=== PATIENT | male | born 1970 | race Hispanic/Latino ===

== ENCOUNTER 2018-12-29 08:16 | Emergency (ER) | payer SELFPAY ==
[2018-12-29 08:52] LABS: #Basophils 0.1 thou/uL (0.0-0.2); #Eosinphils 0.3 thou/uL (0.0-0.7); #Lymphocytes 2.4 thou/uL (1.20-3.40); #Monocytes 0.5 thou/uL (0.11-0.59); #Neutrophils 5.4 thou/uL (1.40-6.50); %Basophils 0.6 % (0.0-1.0); %Eosinophils 3.9 % (0.0-10.0); %Lymphocytes 27.4 % (21.0-51.0); %Monocytes 6.2 % (0.0-10.0); %Neutrophils 61.9 % (42.0-75.0); Hemoglobin 19.5 g/dL (14.0-18.0); Mean Corpuscular HGB CONC 35.3 g/dL (32.0-36.0); Mean Corpuscular Hemoglobin 31.9 pg (27.0-31.0); Mean Corpuscular Volume 90.3 fL (78.0-98.0); Mean Platelet Volume 9.2 fL (7.4-10.4); Platelet Count 235 thou/uL (130-400); RBC Distribution Width 12.3 % (11.5-14.5); Red Blood Cell (RBC) Count 6.12 mill/uL (4.70-6.10); White Blood Cell (WBC) Count 8.8 thou/uL (4.8-10.8)
[2018-12-29 09:11] LABS: ALT (SGPT) 50 U/L (8-55); AST (SGOT) 38 U/L (5-34); Albumin 4.2 g/dL (3.5-5.0); Alkaline Phosphatase 101 U/L (40-110); Anion Gap 16 mmol/L (10-20); BUN (Urea Nitrogen) 27 mg/dL (8.9-20.6); Bilirubin, Total 0.5 mg/dL (0.2-1.2); Calc. Creatinine Clearance 0 mL/min (70-130); Calcium 9.5 mg/dL (7.8-10.44); Carbon Dioxide 18 mmol/L (22-29); Chloride 105 mmol/L (98-107); Estimated GFR-MDRD 23; Glucose 199 mg/dL (70-105); Potassium 5.8 mmol/L (3.5-5.1); Protein, Total 8.2 g/dL (6.0-8.3); Sodium 133 mmol/L (136-145)
--- NOTE | 2018-12-29 10:46 | RAD ---
SINGLE VIEW CHEST: Date: 12/29/18 COMPARISON: None. HISTORY: Low potassium and weakness. FINDINGS: Single view of the chest shows a normal sized cardiomediastinal silhouette. There is no evidence of c onsolidation, mass, or pleural effusion. The bones are unremarkable. IMPRESSION: No evidence of acute cardiopulmonary disease. POS: TPC
[2018-12-29 11:01] LABS: Anion Gap 13 mmol/L (10-20); BUN (Urea Nitrogen) 27 mg/dL (8.9-20.6); Calc. Creatinine Clearance 0 mL/min (70-130); Calcium 9.4 mg/dL (7.8-10.44); Carbon Dioxide 20 mmol/L (22-29); Chloride 107 mmol/L (98-107); Estimated GFR-MDRD 25; Glucose 134 mg/dL (70-105); Sodium 134 mmol/L (136-145)
== END 2018-12-29 11:55 | disposition home or self-care (01) ==
LOC: ERS 08:16
DX: E86.0 Dehydration (principal); E87.5 Hyperkalemia; E11.9 Type 2 diabetes mellitus without complications; E78.5 Hyperlipidemia, unspecified; Z79.899 Other long term (current) drug therapy
CPT/HCPCS: 36415; 36416; 71045; 80053; 85025; 93005; 94760; 96360

== ENCOUNTER 2019-03-06 11:40 | Inpatient (IN) | payer SELFPAY ==
[2019-03-06 12:14] LABS: #Eosinphils 0.3 thou/uL (0.0-0.7); #Monocytes 0.6 thou/uL (0.11-0.59); #Neutrophils 7.3 thou/uL (1.40-6.50); %Basophils 0.2 % (0.0-1.0); %Eosinophils 2.6 % (0.0-10.0); %Lymphocytes 19.9 % (21.0-51.0); %Monocytes 6.2 % (0.0-10.0); %Neutrophils 71.1 % (42.0-75.0); Hemoglobin 17.4 g/dL (14.0-18.0); Mean Corpuscular HGB CONC 34.1 g/dL (32.0-36.0); Mean Corpuscular Hemoglobin 29.6 pg (27.0-31.0); Mean Corpuscular Volume 86.9 fL (78.0-98.0); Mean Platelet Volume 9.4 fL (7.4-10.4); Platelet Count 237 thou/uL (130-400); RBC Distribution Width 12.2 % (11.5-14.5); Red Blood Cell (RBC) Count 5.89 mill/uL (4.70-6.10); White Blood Cell (WBC) Count 10.3 thou/uL (4.8-10.8)
[2019-03-06 12:36] LABS: ALT (SGPT) 36 U/L (8-55); AST (SGOT) 30 U/L (5-34); Albumin 4.1 g/dL (3.5-5.0); Alkaline Phosphatase 117 U/L (40-110); Anion Gap 17 mmol/L (10-20); BUN (Urea Nitrogen) 48 mg/dL (8.9-20.6); Bilirubin, Total 0.5 mg/dL (0.2-1.2); Calc. Creatinine Clearance 0 mL/min (70-130); Calcium 9.2 mg/dL (7.8-10.44); Carbon Dioxide 24 mmol/L (22-29); Chloride 94 mmol/L (98-107); Estimated GFR-MDRD 19; Globulin 3.7 g/dL (2.4-3.5); Glucose 313 mg/dL (70-105); Lipase 47 U/L (8-78); Magnesium 1.4 mg/dL (1.6-2.6); Protein, Total 7.8 g/dL (6.0-8.3); Sodium 132 mmol/L (136-145)
[2019-03-06 12:41] LABS: Potassium 2.5 mmol/L (3.5-5.1)
[2019-03-06] MEDS ORDERED: Potassium Chloride 20 MEQ TAB ONE (12:43)
[2019-03-06 12:44] LABS: Bacteria/HPF None Seen HPF (None Seen); Bilirubin Negative (Negative); Blood, Urine Trace (Negative); Clarity Clear (Clear); Glucose, Urine (Dipstick) 300 mg/dL (Negative); Leukocyte Negative Leu/uL (Negative); Nitrite Negative (Negative); Protein, Urine (Dipstick) 70 mg/dL (Neg-Trace); RBC/HPF 0-3 HPF (0-3); Squamous Epithelial None Seen HPF (0-3); Urobilinogen Normal mg/dL (Less than 2); WBC/HPF 0-3 HPF (0-3)
[2019-03-06] MEDS ORDERED: Dextrose 50% Abboject 50 ML SYRINGE SLOW IVP PRN (15:27)
[2019-03-06] MEDS ORDERED: Insulin Regular 300 UNITS/3 ML VIAL SC PRN (15:27)
[2019-03-06] MEDS ORDERED: Dextrose 5% in Water 1,000 ML IV PRN (15:27)
[2019-03-06] MEDS ORDERED: Ondansetron ODT 4 MG TAB PO PRN (15:28)
[2019-03-06] MEDS ORDERED: Ondansetron PF 4 MG/2 ML Vial IVP PRN (15:28)
[2019-03-06] MEDS ORDERED: Magnesium 2 GM/50 ML BAG (IN WATER) ONE (15:38)
--- NOTE | 2019-03-06 15:59 | HP ---
PRIMARY CARE PHYSICIAN: Anny Hassan. PRIMARY POINTER HELPER: Dr. Bob. CHIEF COMPLAINT: Generalized weakness with diarrhea. 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 The last hospitalization at this facility was in February of 2017 for electrolyte abnormalities. Over the last 24-48 hours, he started having diarrhea. He had approximately 8 episodes of watery stool so far. He denies any hematochezia or melena. He felt nauseous; however, denies any vomiting. He had generalized abdominal cramping as well. No jaundice, loss of weight, fever, chills reported. He felt generally weak and fatigued. He denies any syncope. He denies any fever or chills. In the emergency room, his initial vital signs showed temperature 98.8, respirations of 19, pulse rate of 112 with a blood pressure of 134/82 with O2 saturation 97% on room air. He was found to have potassium of 2.5 with creatinine of 3.45. His baseline creatinine is around 2.5-2.6. He received oral potassium in the emergency room. PAST MEDICAL HISTORY: 1. 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 2. Diabetes mellitus type 2. 3. CKD stage 4. 4. Dyslipidemia. PAST SURGICAL HISTORY: Reviewed with the patient and none. ALLERGIES: THE PATIENT IS ALLERGIC TO FABIO INHIBITOR. CURRENT HOME MEDICATIONS: The patient is unable to provide the list of medicine what he takes at home. SOCIAL HISTORY: The patient currently lives at home with his family. No current use of tobacco, alcohol, or drug use. FAMILY HISTORY: Negative for premature coronary artery disease. REVIEW OF SYSTEMS: All other review of systems were reviewed and were found negative. PHYSICAL EXAMINATION: VITAL SIGNS: As discussed above. GENERAL: A 49-year-old male, in no apparent distress, feels better with IV fluids. HEENT: Head atraumatic and normocephalic. Sclerae anicteric. Dry mucous membranes. No oral lesion. NECK: Supple. No JVD. No carotid bruits. LUNGS: Clear to auscultation bilaterally. No wheezing, rales, or rhonchi. HEART: S1 and S2 present. Regular rate and rhythm. No rubs or gallops. ABDOMEN: Soft, nontender. Bowel sounds present. No rebound or guarding. EXTREMITIES: No edema or calf tenderness. NEUROLOGIC: Grossly nonfocal. Moves all 4 extremities. PSYCHIATRY: Alert, awake, oriented x3. SKIN: Warm and dry. LYMPH NODE: No palpable lymph nodes in the neck. PERIPHERAL VASCULAR: Radial pulses palpable bilaterally. MUSCULOSKELETAL: No joint swelling tenderness. LABORATORY FINDINGS: CBC showed WBC 10.3 with hemoglobin 17.4, hematocrit 51.2, platelet count of 237. Chemistry showed sodium 132, potassium 2.5, chloride 94, bicarb 24, BUN of 48, creatinine 3.45. Magnesium 1.4. Urinalysis was negative for wbc's, bacteria, it showed proteinuria. IMAGING STUDIES: EKG by my review showed sinus rhythm with nonspecific ST-T wave changes. Corrected QT interval was 444. Chest x-ray by my review was negative for infiltrate or edema. IMPRESSION: 1. Generalized weakness, multifactorial. 2. Szfvs-zw-nvfqnis hypokalemia. 3. Diarrhea, suspected infectious. 4. Diabetes mellitus type 2. 5. Hypomagnesemia. 6. Acute kidney injury on chronic kidney disease stage 4. 7. Dyslipidemia. 8. Hyponatremia. 9. FABIO inhibitor allergy. PLAN: 1. The patient will be monitored on the telemetry unit. Nephrology will be consulted. We will get stool workup. We will start him on IV fluids with potassium. We will start him on clear liquid diet. Insulin sliding scale. Vital signs per routine. Recheck labs in a.m. Nephrology consultation. 2. Plan of care was discussed with the patient in detail, he stated understanding. Job ID: [id number]
[2019-03-06] MEDS ORDERED: Potassium Chloride 20 MEQ TAB PO SCH ×2 (17:00→22:00)
[2019-03-06 17:30] VITALS: BMI 39.5
[2019-03-06] MEDS: NS 0.9% w/ 20 MEQ KCL 1,000 ML/1,000 ML BAG IV SCH (18:12)
[2019-03-06] MEDS: Insulin Regular 300 UNITS/3 ML VIAL SC PRN (18:36)
[2019-03-06] MEDS: Famotidine 20 MG TAB PO SCH (21:36)
[2019-03-06 21:44] LABS: Potassium 2.7 mmol/L (3.5-5.1)
[2019-03-07 04:42] LABS: #Basophils 0.1 thou/uL (0.0-0.2); #Eosinphils 0.5 thou/uL (0.0-0.7); #Lymphocytes 2.7 thou/uL (1.20-3.40); #Monocytes 0.7 thou/uL (0.11-0.59); %Basophils 0.7 % (0.0-1.0); %Eosinophils 5.1 % (0.0-10.0); %Lymphocytes 26.9 % (21.0-51.0); %Monocytes 6.9 % (0.0-10.0); %Neutrophils 60.5 % (42.0-75.0); Hemoglobin 15.7 g/dL (14.0-18.0); Mean Corpuscular HGB CONC 33.5 g/dL (32.0-36.0); Mean Corpuscular Hemoglobin 29.7 pg (27.0-31.0); Mean Corpuscular Volume 88.6 fL (78.0-98.0); Mean Platelet Volume 9.2 fL (7.4-10.4); Platelet Count 206 thou/uL (130-400); RBC Distribution Width 12.3 % (11.5-14.5); Red Blood Cell (RBC) Count 5.28 mill/uL (4.70-6.10)
[2019-03-07 05:08] LABS: Albumin 3.5 g/dL (3.5-5.0); Anion Gap 12 mmol/L (10-20); BUN (Urea Nitrogen) 43 mg/dL (8.9-20.6); BUN/Creatinine Ratio 12.84; Calc. Creatinine Clearance 41 mL/min (70-130); Calcium 8.3 mg/dL (7.8-10.44); Carbon Dioxide 29 mmol/L (22-29); Chloride 99 mmol/L (98-107); Estimated GFR-MDRD 20; Glucose 222 mg/dL (70-105); Phosphorus 2.9 mg/dL (2.3-4.7); Sodium 137 mmol/L (136-145)
[2019-03-07 05:10] LABS: Potassium 2.6 mmol/L (3.5-5.1)
[2019-03-07] MEDS: NS 0.9% w/ 20 MEQ KCL 1,000 ML/1,000 ML BAG IV SCH ×4 (05:59→20:23)
[2019-03-07] MEDS ORDERED: Potassium Chloride 20 MEQ TAB PO SCH ×2 (06:45→12:00)
[2019-03-07] MEDS: Insulin Regular 300 UNITS/3 ML VIAL SC PRN ×3 (07:25→16:30)
[2019-03-07] MEDS ORDERED: FLU VACC QS2019-20(6MOS UP)/PF 60 MCG/0.5 ML SYRINGE IM ONE (09:00)
[2019-03-07] MEDS: Potassium Chloride 20 MEQ TAB PO SCH ×3 (11:39→20:24)
--- NOTE | 2019-03-07 15:50 | CON ---
DATE OF CONSULTATION: HISTORY OF PRESENT ILLNESS: Mr. 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 He was found to be significantly hypokalemic. We are now being consulted for chronic renal failure and hypokalemia. This morning, he is feeling better. He has received volume repletion and his hypokalemia is being corrected at the present time. REVIEW OF SYSTEMS: Positive for diarrhea. No nausea. No vomiting. Appetite and energy level are fair. No chest pain or shortness of breath. No syncopal episode. No leg edema. No fever or chills. No gross hematuria. No dysuria. No frequency. No abdominal pain. HOME MEDICATIONS: Include the following, 1. Spironolactone 25 mg q.a.m. 2. KCl (K-Dur) 20 mEq t.i.d. 3. Magnesium oxide 400 mg p.o. b.i.d. 4. NPH 10 units subcu b.i.d. PAST MEDICAL HISTORY: Includes; 1. History of chronic renal failure secondary to a presumed chronic interstitial nephritis. This patient has declined a renal biopsy in the past. 2. 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 3. Type 2 diabetes mellitus. PAST SURGICAL HISTORY: No significant surgeries. ALLERGIES: LISINOPRIL-ANGIOEDEMA. TRAUMA: None. IMMUNIZATIONS: Up to date. HOSPITALIZATIONS: Please see past medical history. SOCIAL HISTORY: The patient originally from [place], but currently lives in [place]. Has one child. No IV drug abuse. Education, high school. Currently works on a p.r.n. basis as daily labor. Currently, no smoking. No alcohol. FAMILY HISTORY: One brother with chronic renal failure. PHYSICAL EXAMINATION: VITAL SIGNS: Blood pressure is 112/65, heart rate 73, respiratory rate 23, temperature 97, and pulse ox 99% on room air. GENERAL: Awake, alert, comfortable, well-built individual. SKIN: Adequate turgor. HEENT: Pinkish conjunctivae. Anicteric sclerae. NECK: No neck mass. No carotid bruits. No JVD. CHEST: No deformities. LUNGS: Clear breath sounds. No wheezing. No crackles. HEART: Normal sinus rhythm. No murmur. No gallops. No rubs. ABDOMEN: Globular, soft, nontender. No masses. EXTREMITIES: No edema. No deformities. LABORATORY DATA: Laboratories of March 07, 2019; white count 10, hemoglobin 15.7. Sodium 137, potassium 2.6, chloride 99, carbon dioxide 29, BUN 43, creatinine 3.35, glucose 222, calcium 8.3, phosphorus 2.9, albumin 3.5. ASSESSMENT/PLAN: 1. Chronic renal failure from presumed chronic interstitial nephritis. Stable renal function. The patient has refused renal biopsy in the past. Continue supportive care. No indication for any dialysis. 2. Hypokalemia. Due to diarrhea, it may have aggravated his chronic hypokalemia. Increase potassium to 40 mEq one tablet q.i.d. We will restart magnesium oxide at 400 mg tablet b.i.d. In addition, spironolactone 25 mg tablet once a day was restarted. Agree with current management. Job ID: [id number]
[2019-03-07] MEDS: Magnesium Oxide 400 MG TAB PO SCH (20:24)
[2019-03-07] MEDS: Famotidine 20 MG TAB PO SCH (20:24)
[2019-03-07] MEDS ORDERED: Famotidine/PF 20 mg/2ml Vial SLOW IVP SCH (21:00)
--- NOTE | 2019-03-07 22:21 | PDOC.HOSPP ---
- Subjective Encounter Date: 03/07/19 Encounter Time: 10:30 Subjective: Patient seen and examined for gen weakness, Diarrhea resolved. Feels somewhat better. No CP. No new complaints. No overnight events - Objective Vital Signs & Weight: Vital Signs (12 hours) Temp Pulse Resp BP Pulse Ox 03/07/19 20:00 97.7 F 80 16 114/58 L 97 03/07/19 15:35 98 F 73 16 109/64 97 03/07/19 11:49 97.6 F 82 18 120/64 96 Weight Admit Weight 237 lb 9.6 oz Weight 237 lb 9.6 oz I&O: 03/06/19 03/07/19 03/08/19 06:59 06:59 06:59 Intake Total 2180 2220 Output Total 1900 2175 Balance 280 45 Result Diagrams: 03/07/19 04:26 03/08/19 04:09 Additional Labs: Accuchecks 03/07/19 03/07/19 03/07/19 20:21 16:08 12:48 POC Glucose 128 H 280 H 133 H 03/07/19 03/07/19 03/07/19 10:26 05:42 01:37 POC Glucose 189 H 265 H 112 H 03/06/19 21:52 POC Glucose 148 H EKG Reviewed by me: Yes (Tele SR) Hospitalist ROS - Review of Systems Respiratory: denies: cough, dry, shortness of breath, hemoptysis, SOB with excertion, pleuritic pain, sputum, wheezing, other Cardiovascular: denies: chest pain, palpitations, orthopnea, paroxysmal noc. dyspnea, edema, light headedness, other - Medication Medications: Active Medications Generic Name Dose Route Start Last Admin Trade Name Freq PRN Reason Stop Dose Admin Famotidine 20 mg 03/07/19 21:00 03/07/19 20:24 Pepcid SLOW IVP Not Given 2100 ORION Famotidine 20 mg 03/06/19 21:00 03/07/19 20:24 Pepcid PO 20 mg 2100 ORION Administration Potassium Chloride/Sodium Chloride 1,000 ml in 1,000 mls @ 125 mls/hr 15:30 03/07/19 20:23 Ns 0.9% W/ 20 Meq Kcl IV 1,000 mls .Q8H ORION Administration Insulin Human Regular 0 units 03/06/19 15:27 03/07/19 16:30 Humulin R SC 4 unit .MILD SLIDING SCALE PRN Administration Mild Correctional Scale Magnesium Oxide 400 mg 03/07/19 21:00 03/07/19 20:24 Magnesium Oxide PO 400 mg BID ORION Administration Potassium Chloride 40 meq 03/07/19 12:00 03/07/19 20:24 K-Dur PO 40 meq QID-WM ORION Administration - Exam General Appearance: NAD Heart: RRR, no gallops, no rubs, normal peripheral pulses Respiratory: CTAB, no rales, no ronchi, normal chest expansion Gastrointestinal: soft, non-tender, non-distended, normal bowel sounds Extremities: no edema Psychiatric: normal affect, A&O x 3 Hosp A/P - Plan DVT proph w/SCDs 1. Generalized weakness, multifactorial. 2. Dfnti-vp-xmpkldk hypokalemia. 3. Acute kidney injury on chronic kidney disease stage 4. 4. Diabetes mellitus type 2. 5. Hypomagnesemia. 6. Hyponatremia. 7. Dyslipidemia. 8. Diarrhea - on admission - resolved - ?etio PLAN: Cont to replace Potassium Low dose Aldactone started DC Stool w/u AM labs Cont other meds Avoid nephrotoxic agents
[2019-03-08] MEDS: NS 0.9% w/ 20 MEQ KCL 1,000 ML/1,000 ML BAG IV SCH ×4 (04:50→21:47)
[2019-03-08 05:14] LABS: Anion Gap 12 mmol/L (10-20); BUN (Urea Nitrogen) 42 mg/dL (8.9-20.6); Calc. Creatinine Clearance 43 mL/min (70-130); Calcium 8.3 mg/dL (7.8-10.44); Carbon Dioxide 30 mmol/L (22-29); Chloride 102 mmol/L (98-107); Estimated GFR-MDRD 21; Glucose 156 mg/dL (70-105); Magnesium 1.3 mg/dL (1.6-2.6); Sodium 141 mmol/L (136-145)
[2019-03-08] MEDS: Potassium Chloride 20 MEQ TAB PO SCH ×4 (07:29→20:37)
[2019-03-08] MEDS: Spironolactone 25 MG TAB PO SCH (07:30)
[2019-03-08] MEDS ORDERED: Magnesium Sulfate 2 GM in Sodium Chloride 0.9% 100 ML IVPB SCH (08:00)
[2019-03-08] MEDS ORDERED: Magnesium 2 GM/50 ML 2 GM in Premix Bag 1 BAG IVPB SCH (08:15)
--- NOTE | 2019-03-08 08:49 | PRG ---
DATE OF SERVICE: 03/08/2019 SUBJECTIVE: Mr. Upton is a 49-year-old male with chronic renal failure from presumed chronic interstitial nephritis, chronic hypokalemia, secondary to presumed Bartter syndrome and was admitted for generalized weakness. Potassium was noted to be on the low side. Potassium replacement is being given. In addition, we have restarted him back on his magnesium tablets. Furthermore, spironolactone was restarted with this patient. No other complaints. He is feeling a little stronger. OBJECTIVE: VITAL SIGNS: Blood pressure 108/54, heart rate 77, respiratory rate 16, temperature 98.1, and pulse ox 97%. GENERAL: Awake, sitting comfortable, not in overt distress. SKIN: Adequate turgor. HEENT: Pinkish conjunctivae, anicteric sclerae. NECK: No neck mass. No carotid bruits. No JVD. CHEST: No deformities. LUNGS: Clear breath sounds. HEART: Normal sinus rhythm. No murmur. No gallops. No rubs. ABDOMEN: Globular, soft, nontender, no masses. EXTREMITIES: No edema, no deformities. MEDICATIONS: Medications of March 08, 2019, was reviewed. LABORATORY DATA: March 08, 2019, sodium 141, potassium 3, chloride 102, carbon dioxide 30, BUN 42, creatinine 3.2, glucose 156, calcium 8.3, magnesium 1.3. ASSESSMENT AND PLAN: 1. Chronic renal failure from a presumed chronic interstitial nephritis. Stable renal function. Creatinine 3.2. He is nearing baseline. Continue supportive care. Continue empiric volume repletion. Adjust IV fluid as needed. 2. Chronic hypokalemia, improving. Continue potassium replacement of 40 mEq one tab 4 times a day. Magnesium has been added. Furthermore, spironolactone has been resumed. 3. We will recheck basic metabolic profile in a.m. Consider increasing his IV fluid to 150 mL an hour. 4. Recheck basic metabolic profile in a.m. Job ID: [id number]
[2019-03-08] MEDS: Magnesium Oxide 400 MG TAB PO SCH ×2 (09:27→20:37)
[2019-03-08] MEDS: Insulin Regular 300 UNITS/3 ML VIAL SC PRN ×2 (09:32→11:32)
--- NOTE | 2019-03-08 11:31 | PDOC.HOSPP ---
- Subjective Encounter Date: 03/08/19 Encounter Time: 11:29 Subjective: Patient seen and examined for Gen weakness. Feels better. No new complaints. No overnight events - Objective Vital Signs & Weight: Vital Signs (12 hours) Temp Pulse Resp BP Pulse Ox 03/08/19 07:21 98.1 F 77 16 108/54 L 97 03/08/19 03:50 97.9 F 75 20 102/61 94 L 03/08/19 00:00 98.1 F 79 20 98/63 95 Weight Admit Weight 237 lb 9.6 oz Weight 237 lb 9.6 oz I&O: 03/07/19 03/08/19 03/09/19 06:59 06:59 06:59 Intake Total 2180 4080 Output Total 1900 3375 Balance 280 705 Result Diagrams: 03/07/19 04:26 03/08/19 04:09 Additional Labs: Accuchecks 03/08/19 03/08/19 03/08/19 10:52 08:27 04:18 POC Glucose 224 H 216 H 147 H 03/08/19 03/07/19 03/07/19 00:19 20:21 16:08 POC Glucose 170 H 128 H 280 H 03/07/19 12:48 POC Glucose 133 H Laboratory Tests 03/08/19 04:09 Magnesium 1.3 L EKG Reviewed by me: Yes (Tele SR) Hospitalist ROS - Review of Systems ENT: denies: ear pain, ear discharge, nose pain, nose discharge, nose congestion , mouth pain, mouth swelling, throat pain, throat swelling, other Respiratory: denies: cough, dry, shortness of breath, hemoptysis, SOB with excertion, pleuritic pain, sputum, wheezing, other Cardiovascular: denies: chest pain, palpitations, orthopnea, paroxysmal noc. dyspnea, edema, light headedness, other - Medication Medications: Active Medications Generic Name Dose Route Start Last Admin Trade Name Freq PRN Reason Stop Dose Admin Famotidine 20 mg 03/06/19 21:00 03/07/19 20:24 Pepcid PO 20 mg 2100 ORION Administration Potassium Chloride/Sodium Chloride 1,000 ml in 1,000 mls @ 150 mls/hr 08:33 03/08/19 09:27 Ns 0.9% W/ 20 Meq Kcl IV Not Given .[id number] [facility] Insulin Human Regular 0 units 03/06/19 15:27 03/08/19 09:32 Humulin R SC 3 unit .MILD SLIDING SCALE PRN Administration Mild Correctional Scale Magnesium Oxide 400 mg 03/07/19 21:00 03/08/19 09:27 Magnesium Oxide PO 400 mg BID ORION Administration Potassium Chloride 40 meq 03/07/19 12:00 03/08/19 07:29 K-Dur PO 40 meq QID-WM ORION Administration Spironolactone 25 mg 03/08/19 08:00 03/08/19 07:30 Aldactone PO 25 mg QAM-WM ORION Administration - Exam General Appearance: NAD Neck: supple, no JVD Heart: RRR, no rubs Respiratory: CTAB, no rales Gastrointestinal: soft, normal bowel sounds Extremities: no edema Hosp A/P - Plan DVT proph w/SCDs 1. Generalized weakness, multifactorial. 2. Bxnan-ek-vzsverx hypokalemia. 3. Acute kidney injury on chronic kidney disease stage 4. 4. Diabetes mellitus type 2. 5. Hypomagnesemia. 6. Hyponatremia. 7. Dyslipidemia. 8. Diarrhea - on admission - resolved - ?etio PLAN: Replace Potassium Cont Aldactone Cont IVF Replace Magnessium AM labs Cont other meds Ambulate
[2019-03-08 16:14] VITALS: TEMP 98.3
[2019-03-08] MEDS: Famotidine 20 MG TAB PO SCH (20:38)
[2019-03-09] MEDS: NS 0.9% w/ 20 MEQ KCL 1,000 ML/1,000 ML BAG IV SCH ×3 (05:10→13:53)
[2019-03-09] MEDS: Magnesium Oxide 400 MG TAB PO SCH ×2 (09:56→12:37)
[2019-03-09] MEDS: Potassium Chloride 20 MEQ TAB PO SCH ×3 (09:56→12:36)
[2019-03-09] MEDS: Insulin Regular 300 UNITS/3 ML VIAL SC PRN ×2 (09:56→13:09)
[2019-03-09] MEDS: Spironolactone 25 MG TAB PO SCH ×2 (09:56→12:37)
--- NOTE | 2019-03-09 13:01 | PRG ---
DATE OF SERVICE: 03/09/2019 SUBJECTIVE: Mr. Upton is a 49-year-old male with known history of chronic renal failure from presumed chronic interstitial nephritis, chronic hypokalemia from Bartter syndrome. We are continuing to replenish IV hydration. In addition, we have increased his IV fluid from 125 mL/hour to 150 mL/h. No other complaints. No chest pain. No nausea. No shortness of breath. OBJECTIVE: VITAL SIGNS: Blood pressure is 111/66, heart rate 81, respiratory rate 18, temperature 98.3, and pulse ox 96%. GENERAL: Noted to be awake, alert, and comfortable, not in overt distress. SKIN: Adequate turgor. HEENT: He has a pinkish conjunctivae. Anicteric sclerae. No neck mass. No carotid bruits. No JVD. CHEST: No deformities. LUNGS: Clear breath sounds. No wheezing. No crackles. HEART: Normal sinus rhythm. No murmur. No gallops. No rubs. ABDOMEN: Globular, soft, and nontender. No masses. EXTREMITIES: No edema. MEDICATIONS: Of March 09, 2019, was reviewed. LABORATORY DATA: Of March 08, 2019; sodium 141, potassium 3, chloride 102, carbon dioxide 30, BUN 42, creatinine 3.2, and magnesium 1.3. ASSESSMENT AND PLAN: 1. Hypokalemia. Continuing potassium replacement. Continue 40 mEq q.i.d. Continue mag oxide as well as IV fluid. 2. Chronic renal failure, stable and improving. Continue IV hydration. Continue increased dose of IV fluid. If the potassium will be 3 or greater today, consider discharging the patient and will follow up this patient as an outpatient. Job ID: [id number]
--- NOTE | 2019-03-09 14:33 | DIS ---
DATE OF ADMISSION: 03/06/2019 DATE OF DISCHARGE: 03/09/2019 DISCHARGE DISPOSITION: Home. DISCHARGE INSTRUCTIONS: 1. Follow up with Dr. Bob next week. 2. Repeat basic metabolic profile next week is recommended. The patient was advised to contact Dr. Bob's office. DISCHARGE MEDICATION: 1. Magnesium oxide 400 mg b.i.d. 2. Potassium chloride 40 mEq four times a day. 3. Aldactone 25 mg daily. 4. NPH 10 units b.i.d. The patient was seen and examined on the day of discharge. Denies any new complaints. No chest pain, shortness of breath or palpitations. BRIEF HOSPITAL COURSE: The patient is a 49-year-old male with chronic hypokalemia, suspected secondary to Bartter syndrome and diabetes mellitus type 2, presented to the hospital with generalized weakness along with diarrhea. After admission, he did not have a bowel movement for almost two days. He was found to have significant electrolyte abnormalities with potassium of 2.5, magnesium 1.4, and sodium of 132. His electrolytes were replaced. His potassium today was 3.1. Dr. Bob has cleared the patient for discharge. He was advised to take potassium 40 mEq four times a day along with Aldactone and magnesium oxide. He will follow up with Dr. Bob next week. FINAL DIAGNOSES: 1. Generalized weakness, multifactorial. 2. Acute on chronic hypokalemia, replaced. 3. Acute kidney injury on chronic kidney disease stage 4. His creatinine on admission was 3.45, at discharge is 3.2. 4. Diabetes mellitus type 2. 5. Hyponatremia. 6. Hypomagnesemia. 7. Dyslipidemia. 8. Diarrhea on admission, resolved. 9. Obesity with a BMI of 39.5. PLAN: Plan was discussed with the patient in detail. He stated understanding. Job ID: [id number]
[2019-03-09 15:13] LABS: Anion Gap 14 mmol/L (10-20); BUN (Urea Nitrogen) 36 mg/dL (8.9-20.6); Calc. Creatinine Clearance 47 mL/min (70-130); Calcium 8.1 mg/dL (7.8-10.44); Carbon Dioxide 27 mmol/L (22-29); Chloride 103 mmol/L (98-107); Estimated GFR-MDRD 23; Glucose 134 mg/dL (70-105); Magnesium 1.4 mg/dL (1.6-2.6); Potassium 3.1 mmol/L (3.5-5.1); Sodium 141 mmol/L (136-145)
[2019-03-09 16:07] VITALS: BP 131/73
== END 2019-03-09 16:00 | disposition home or self-care (01) | DRG 683 ==
LOC: ERS 11:40 → 2NO 16:26
PROVIDERS: ADMIT Internal Medicine; ATTEND Internal Medicine
DX: N17.9 Acute kidney failure, unspecified (principal); E87.1 Hypo-osmolality and hyponatremia; E26.81 Bartter's syndrome; N18.4 Chronic kidney disease, stage 4 (severe); N11.9 Chronic tubulo-interstitial nephritis, unspecified; E11.22 Type 2 diabetes mellitus with diabetic chronic kidney disease; E78.5 Hyperlipidemia, unspecified; E83.42 Hypomagnesemia; E87.6 Hypokalemia; R19.7 Diarrhea, unspecified; E66.9 Obesity, unspecified; Z68.39 Body mass index [BMI] 39.0-39.9, adult; Z88.8 Allergy status to other drugs, medicaments and biological substances; Z79.4 Long term (current) use of insulin; Z79.899 Other long term (current) drug therapy
CPT/HCPCS: 36415; 36416; 80048; 80053; 80069; 81003; 81015; 83690; 83735; 85025; 90471; 90686; 93005; 96361; 96365; G0008; J1815; J3475; J3480

== ENCOUNTER 2019-04-21 23:21 | Emergency (ER) | payer SELFPAY ==
[2019-04-21 23:55] LABS: #Basophils 0.1 thou/uL (0.0-0.2); #Eosinphils 0.4 thou/uL (0.0-0.7); #Lymphocytes 2.5 thou/uL (1.20-3.40); #Monocytes 0.6 thou/uL (0.11-0.59); #Neutrophils 5.5 thou/uL (1.40-6.50); %Basophils 0.8 % (0.0-1.0); %Eosinophils 4.4 % (0.0-10.0); %Monocytes 6.5 % (0.0-10.0); %Neutrophils 60.4 % (42.0-75.0); Hemoglobin 17.4 g/dL (14.0-18.0); Mean Corpuscular HGB CONC 34.5 g/dL (32.0-36.0); Mean Corpuscular Hemoglobin 30.5 pg (27.0-31.0); Mean Corpuscular Volume 88.3 fL (78.0-98.0); Mean Platelet Volume 9.7 fL (7.4-10.4); Platelet Count 235 thou/uL (130-400); Red Blood Cell (RBC) Count 5.71 mill/uL (4.70-6.10); White Blood Cell (WBC) Count 9.1 thou/uL (4.8-10.8)
[2019-04-22 00:17] LABS: ALT (SGPT) 39 U/L (8-55); AST (SGOT) 31 U/L (5-34); Albumin 4.3 g/dL (3.5-5.0); Alkaline Phosphatase 102 U/L (40-110); Anion Gap 16 mmol/L (10-20); BUN (Urea Nitrogen) 34 mg/dL (8.9-20.6); Bilirubin, Total 0.7 mg/dL (0.2-1.2); Calc. Creatinine Clearance 0 mL/min (70-130); Calcium 9.2 mg/dL (7.8-10.44); Carbon Dioxide 24 mmol/L (22-29); Chloride 99 mmol/L (98-107); Estimated GFR-MDRD 20; Globulin 3.7 g/dL (2.4-3.5); Glucose 118 mg/dL (70-105); Magnesium 1.6 mg/dL (1.6-2.6); Potassium 3.6 mmol/L (3.5-5.1); Sodium 135 mmol/L (136-145)
[2019-04-22 00:22] LABS: Troponin I 0.015 ng/mL (< 0.028)
--- NOTE | 2019-04-22 08:18 | RAD ---
PORTABLE UPRIGHT FRONTAL CHEST RADIOGRAPH: DATE: 04/22/2019. COMPARISON: None. HISTORY: Dizziness with chest pressure and headache. FINDINGS: No pneumothorax or pleural fluid. No focal consolidation or alveolar edema. Heart and mediastinal c ontours are unremarkable. IMPRESSION: No acute findings. POS: TPC
== END 2019-04-22 00:50 | disposition home or self-care (01) ==
LOC: ERS 23:21
DX: N18.9 Chronic kidney disease, unspecified (principal); R42 Dizziness and giddiness; E11.22 Type 2 diabetes mellitus with diabetic chronic kidney disease; E87.6 Hypokalemia; Z79.4 Long term (current) use of insulin; Z79.899 Other long term (current) drug therapy
CPT/HCPCS: 71045; 80053; 83735; 84484; 85025; 87804; 93005

== ENCOUNTER 2019-09-26 09:24 | Emergency (ER) | payer SELFPAY ==
[2019-09-26 09:45] LABS: #Eosinphils 0.3 thou/uL (0.0-0.7); #Monocytes 0.4 thou/uL (0.11-0.59); #Neutrophils 4.8 thou/uL (1.40-6.50); %Basophils 0.2 % (0.0-1.0); %Eosinophils 4.5 % (0.0-10.0); %Lymphocytes 25.9 % (21.0-51.0); %Monocytes 5.6 % (0.0-10.0); %Neutrophils 63.8 % (42.0-75.0); Hemoglobin 16.7 g/dL (14.0-18.0); Mean Corpuscular HGB CONC 34.6 g/dL (32.0-36.0); Mean Corpuscular Hemoglobin 31.3 pg (27.0-31.0); Mean Corpuscular Volume 90.6 fL (78.0-98.0); Mean Platelet Volume 8.7 fL (7.4-10.4); Platelet Count 224 thou/uL (130-400); RBC Distribution Width 12.1 % (11.5-14.5); Red Blood Cell (RBC) Count 5.32 mill/uL (4.70-6.10); White Blood Cell (WBC) Count 7.6 thou/uL (4.8-10.8)
[2019-09-26 10:01] LABS: ALT (SGPT) 34 U/L (8-55); AST (SGOT) 27 U/L (5-34); Alkaline Phosphatase 99 U/L (40-110); Anion Gap 17 mmol/L (10-20); BUN (Urea Nitrogen) 37 mg/dL (8.9-20.6); Bilirubin, Total 0.3 mg/dL (0.2-1.2); Calc. Creatinine Clearance 0 mL/min (70-130); Calcium 8.2 mg/dL (7.8-10.44); Carbon Dioxide 25 mmol/L (22-29); Chloride 98 mmol/L (98-107); Estimated GFR-MDRD 17; Globulin 3.6 g/dL (2.4-3.5); Glucose 186 mg/dL (70-105); Potassium 3.7 mmol/L (3.5-5.1); Protein, Total 7.6 g/dL (6.0-8.3); Sodium 136 mmol/L (136-145)
[2019-09-26 10:29] LABS: Magnesium 1.3 mg/dL (1.6-2.6); Phosphorus 2.5 mg/dL (2.3-4.7)
--- NOTE | 2019-09-26 11:12 | RAD ---
PA CHEST: HISTORY: Low potassium, elevated blood sugar, headache. COMPARISON: 04/22/2019. FINDINGS: Lungs are clear. No infiltrate or vascular congestion. Heart and mediastinum appear normal. IMPRESSION: No acute process. POS: AGW
--- NOTE | 2019-09-26 11:48 | CT ---
Exam: Head CT without contrast HISTORY: Headache, x3 days. COMPARISON: 09/12/2015 FINDINGS: Hemorrhage: No intraparenchymal hemorrhage or extra-axial hematoma. Brain parenchyma: Cortical lux-white matter differentiation is preserved. No mass effect or midline shift. Basilar cisterns are patent. Ventricular system: Ventricles and sulci are patent and symmetric. Calvarium: Intact. Sinuses and mastoid air cells: Adequate aeration. IMPRESSION: No acute intracranial process.
[2019-09-26] MEDS ORDERED: Metoclopramide HCl 10 MG/2 ML VIAL ONE (11:49)
[2019-09-26] MEDS ORDERED: diphenhydrAMINE 50 MG/ML VIAL ONE (11:49)
[2019-09-26 12:23] LABS: Bacteria/HPF None Seen HPF (None Seen); Bilirubin Negative (Negative); Blood, Urine Trace (Negative); Clarity Clear (Clear); Glucose, Urine (Dipstick) Normal (Negative); Leukocyte Negative Leu/uL (Negative); Nitrite Negative (Negative); Protein, Urine (Dipstick) 70 mg/dL (Neg-Trace); RBC/HPF None Seen HPF (0-3); Squamous Epithelial None Seen HPF (0-3); Urobilinogen Normal mg/dL (Less than 2); WBC/HPF 0-3 HPF (0-3)
== END 2019-09-26 13:12 | disposition home or self-care (01) ==
LOC: ERS 09:24
DX: R51 Headache (principal); E11.9 Type 2 diabetes mellitus without complications; Z79.4 Long term (current) use of insulin; Z79.899 Other long term (current) drug therapy
CPT/HCPCS: 36415; 36416; 70450; 71045; 80053; 81003; 81015; 82010; 83735; 84100; 84484; 85025; 93005; 96365; 96375; J1200; J2765

== ENCOUNTER 2020-04-01 06:47 | Emergency (ER) | payer SELFPAY ==
[2020-04-01] MEDS ORDERED: Ondansetron PF 4 MG/2 ML Vial ONE (07:27)
[2020-04-01 07:38] LABS: #Eosinphils 0.3 thou/uL (0.0-0.7); #Lymphocytes 1.9 thou/uL (1.20-3.40); #Monocytes 0.5 thou/uL (0.11-0.59); %Basophils 0.2 % (0.0-1.0); %Eosinophils 3.3 % (0.0-10.0); %Lymphocytes 21.8 % (21.0-51.0); %Monocytes 5.7 % (0.0-10.0); %Neutrophils 68.9 % (42.0-75.0); Mean Corpuscular HGB CONC 34.1 g/dL (32.0-36.0); Mean Corpuscular Volume 91.1 fL (78.0-98.0); Mean Platelet Volume 8.6 fL (7.4-10.4); Platelet Count 231 thou/uL (130-400); RBC Distribution Width 12.4 % (11.5-14.5); Red Blood Cell (RBC) Count 5.47 mill/uL (4.70-6.10); White Blood Cell (WBC) Count 8.7 thou/uL (4.8-10.8)
[2020-04-01 08:02] LABS: ALT (SGPT) 21 U/L (8-55); AST (SGOT) 16 U/L (5-34); Alkaline Phosphatase 85 U/L (40-110); Anion Gap 17 mmol/L (10-20); BUN (Urea Nitrogen) 41 mg/dL (8.9-20.6); Bilirubin, Total 0.4 mg/dL (0.2-1.2); Calc. Creatinine Clearance 0 mL/min (70-130); Calcium 8.8 mg/dL (7.8-10.44); Carbon Dioxide 24 mmol/L (22-29); Chloride 98 mmol/L (98-107); Globulin 3.8 g/dL (2.4-3.5); Glucose 156 mg/dL (70-105); Lipase 53 U/L (8-78); Magnesium 1.5 mg/dL (1.6-2.6); Potassium 4.1 mmol/L (3.5-5.1); Protein, Total 7.8 g/dL (6.0-8.3); Sodium 135 mmol/L (136-145)
[2020-04-01 12:46] LABS: SARS-CoV-2 MS2 Positive; SARS-CoV-2 N Gene Negative; SARS-CoV-2 S Gene Negative; SARS-CoV-2 by NAA Not Detected (NotDetected); SARS-CoV-2 orf1ab Negative
== END 2020-04-01 09:05 | disposition home or self-care (01) ==
LOC: ERS 06:47
DX: R11.0 Nausea (principal); M62.81 Muscle weakness (generalized); Z20.828 Contact with and (suspected) exposure to other viral communicable diseases; Z79.899 Other long term (current) drug therapy; Z79.4 Long term (current) use of insulin
CPT/HCPCS: 36415; 80053; 83690; 83735; 84484; 85025; 87635; 93005; 96374; J2405; U0003

== ENCOUNTER 2020-06-13 05:39 | Inpatient (IN) | payer SELFPAY ==
[2020-06-13 06:05] LABS: #Basophils 0.1 thou/uL (0.0-0.2); #Eosinphils 0.3 thou/uL (0.0-0.7); #Lymphocytes 2.4 thou/uL (1.20-3.40); #Monocytes 0.5 thou/uL (0.11-0.59); #Neutrophils 6.3 thou/uL (1.40-6.50); %Basophils 0.6 % (0.0-1.0); %Eosinophils 3.4 % (0.0-10.0); %Lymphocytes 24.7 % (21.0-51.0); %Monocytes 5.3 % (0.0-10.0); Hemoglobin 16.9 g/dL (14.0-18.0); Mean Corpuscular HGB CONC 33.5 g/dL (32.0-36.0); Mean Corpuscular Hemoglobin 30.5 pg (27.0-31.0); Mean Corpuscular Volume 91.1 fL (78.0-98.0); Mean Platelet Volume 9.5 fL (7.4-10.4); Platelet Count 264 thou/uL (130-400); RBC Distribution Width 11.7 % (11.5-14.5); Red Blood Cell (RBC) Count 5.54 mill/uL (4.70-6.10); White Blood Cell (WBC) Count 9.6 thou/uL (4.8-10.8)
[2020-06-13 06:29] LABS: ALT (SGPT) 30 U/L (8-55); AST (SGOT) 40 U/L (5-34); Albumin 3.8 g/dL (3.5-5.0); Alkaline Phosphatase 79 U/L (40-110); Anion Gap 21 mmol/L (10-20); BUN (Urea Nitrogen) 46 mg/dL (8.9-20.6); Bilirubin, Total 0.4 mg/dL (0.2-1.2); Calc. Creatinine Clearance 0 mL/min (70-130); Calcium 8.4 mg/dL (7.8-10.44); Carbon Dioxide 18 mmol/L (22-29); Chloride 101 mmol/L (98-107); Globulin 4.2 g/dL (2.4-3.5); Glucose 141 mg/dL (70-105); Potassium 5.2 mmol/L (3.5-5.1); Sodium 135 mmol/L (136-145)
[2020-06-13 09:47] LABS: HBSAB Concentration Less than 8.00 mIU/mL; HBSAg Index 0.18 S/CO (0-0.99); Hep B Core Total Ab Non-Reactive (NonReactive); Hep B Core Total Index 0.09 S/CO (0-0.79); Hep B Surf AB Non-Reactive (NonReactive); Hep B Surf Ag Non-Reactive S/CO (NonReactive); Hep C IgG Ab Non-Reactive (NonReactive)
[2020-06-13] MEDS ORDERED: Calcium Carbonate 500 MG ChewTAB PO PRN (09:48)
[2020-06-13] MEDS ORDERED: Guaifenesin DM 100-10/5 ML UDCUP PO PRN (09:48)
[2020-06-13] MEDS ORDERED: Ondansetron PF 4 MG/2 ML Vial IVP PRN (09:48)
[2020-06-13] MEDS ORDERED: Dextrose 5% in Water 1,000 ML IV PRN (09:48)
[2020-06-13] MEDS ORDERED: HumaLOG 300 UNITS/3 ML VIAL SC PRN ×2 (09:48)
[2020-06-13] MEDS ORDERED: Ondansetron ODT 4 MG TAB PO PRN (09:48)
[2020-06-13] MEDS ORDERED: Dextrose 50% Abboject 50 ML SYRINGE SLOW IVP PRN (09:48)
[2020-06-13] MEDS ORDERED: Acetaminophen 325 MG TAB PO PRN (09:48)
[2020-06-13] MEDS ORDERED: Loperamide HCl 2 MG CAP PO PRN (09:48)
[2020-06-13] MEDS ORDERED: Zolpidem Tartrate 5 MG TAB PO PRN (09:48)
[2020-06-13] MEDS ORDERED: Senokot S 8.6-50 MG TAB PO PRN (09:48)
[2020-06-13] MEDS ORDERED: HYDROcodone/Acetaminophen 5/325 mg Tablet PO PRN (09:48)
[2020-06-13] MEDS ORDERED: Sodium Chloride 0.45% 1,000 ML IV SCH (10:00)
[2020-06-13 10:29] LABS: Phosphorus 2.6 mg/dL (2.3-4.7)
[2020-06-13 12:07] VITALS: BMI 34.8
[2020-06-13] MEDS: Famotidine 20 MG TAB PO SCH (14:48)
[2020-06-13] MEDS: Heparin 5,000 UNITS/ML VIAL SC SCH ×2 (14:48→20:31)
[2020-06-13] MEDS: Sodium Bicarbonate Tab 325 MG TAB PO SCH ×2 (14:48→20:31)
[2020-06-13] MEDS: Sodium Bicarbonate 50 MEQ in Sodium Chloride 0.45% 1,000 ML IV SCH (21:01)
[2020-06-13 23:56] LABS: Bilirubin Negative (Negative); Blood, Urine Trace (Negative); Clarity Clear (Clear); Glucose, Urine (Dipstick) 150 mg/dL (Negative); Ketone, Urine Negative (Negative); Leukocyte Negative Leu/uL (Negative); Nitrite Negative (Negative); Protein, Urine (Dipstick) 100 mg/dL (Neg-Trace); RBC/HPF 0-3 HPF (0-3); Specific Gravity, Urine 1.007 (1.002-1.036); Squamous Epithelial None Seen HPF (0-3); Urobilinogen Normal mg/dL (Less than 2); WBC/HPF 0-3 HPF (0-3)
[2020-06-13 23:57] LABS: Bacteria/HPF None Seen HPF (None Seen)
[2020-06-14 01:25] LABS: Creatinine, Urine 24.77 mg/dL (63-166)
[2020-06-14 02:38] LABS: SARS-CoV-2 PCR by NAA Not Detected (NotDetected)
[2020-06-14 05:40] LABS: #Basophils 0.1 thou/uL (0.0-0.2); #Eosinphils 0.3 thou/uL (0.0-0.7); #Lymphocytes 2.1 thou/uL (1.20-3.40); #Monocytes 0.6 thou/uL (0.11-0.59); #Neutrophils 4.9 thou/uL (1.40-6.50); %Basophils 0.8 % (0.0-1.0); %Eosinophils 4.3 % (0.0-10.0); %Lymphocytes 26.3 % (21.0-51.0); %Monocytes 7.7 % (0.0-10.0); %Neutrophils 60.9 % (42.0-75.0); Hemoglobin 16.4 g/dL (14.0-18.0); Mean Corpuscular HGB CONC 33.3 g/dL (32.0-36.0); Mean Corpuscular Hemoglobin 30.3 pg (27.0-31.0); Mean Corpuscular Volume 91.2 fL (78.0-98.0); Platelet Count 224 thou/uL (130-400); RBC Distribution Width 11.4 % (11.5-14.5)
[2020-06-14 06:00] LABS: ALT (SGPT) 21 U/L (8-55); AST (SGOT) 16 U/L (5-34); Albumin 3.8 g/dL (3.5-5.0); Alkaline Phosphatase 76 U/L (40-110); Anion Gap 16 mmol/L (10-20); BUN (Urea Nitrogen) 53 mg/dL (8.9-20.6); Bilirubin, Total 0.4 mg/dL (0.2-1.2); Calc. Creatinine Clearance 29 mL/min (70-130); Calcium 8.2 mg/dL (7.8-10.44); Carbon Dioxide 31 mmol/L (22-29); Chloride 93 mmol/L (98-107); Globulin 3.5 g/dL (2.4-3.5); Glucose 134 mg/dL (70-105); Potassium 4.1 mmol/L (3.5-5.1); Protein, Total 7.3 g/dL (6.0-8.3); Sodium 136 mmol/L (136-145)
[2020-06-14 07:47] VITALS: TEMP 98.4
[2020-06-14] MEDS: Famotidine 20 MG TAB PO SCH (08:03)
[2020-06-14] MEDS: Heparin 5,000 UNITS/ML VIAL SC SCH (08:03)
[2020-06-14] MEDS: Sodium Bicarbonate Tab 325 MG TAB PO SCH (08:03)
[2020-06-14] MEDS: Sodium Bicarbonate 50 MEQ in Sodium Chloride 0.45% 1,000 ML IV SCH (08:04)
[2020-06-14] MEDS ORDERED: FLU VACC QS2020-21(6MOS UP)/PF 60 MCG/0.5 ML SYRINGE IM ONE (09:00)
[2020-06-14] MEDS ORDERED: Calcitriol 0.25 MCG CAP PO SCH (09:00)
[2020-06-14 10:25] VITALS: BP 133/93
== END 2020-06-14 13:49 | disposition left against medical advice (07) | DRG 683 ==
LOC: ERS 05:39 → ERHOLD 07:32 → T4-B 11:55
PROVIDERS: ADMIT Internal Medicine; ATTEND Internal Medicine
DX: N17.9 Acute kidney failure, unspecified (principal); I12.0 Hypertensive chronic kidney disease with stage 5 chronic kidney disease or end stage renal disease; Z20.822 Contact with and (suspected) exposure to COVID-19; E11.22 Type 2 diabetes mellitus with diabetic chronic kidney disease; E11.65 Type 2 diabetes mellitus with hyperglycemia; E78.5 Hyperlipidemia, unspecified; N18.6 End stage renal disease; E87.5 Hyperkalemia; N25.81 Secondary hyperparathyroidism of renal origin; K52.9 Noninfective gastroenteritis and colitis, unspecified; E87.6 Hypokalemia; E83.42 Hypomagnesemia; K22.70 Barrett's esophagus without dysplasia; E66.9 Obesity, unspecified; Z88.8 Allergy status to other drugs, medicaments and biological substances; Z79.4 Long term (current) use of insulin; Z79.899 Other long term (current) drug therapy; Z68.34 Body mass index [BMI] 34.0-34.9, adult
CPT/HCPCS: 36415; 36416; 76770; 80053; 81001; 82306; 82570; 83970; 84100; 84156; 85025; 86704; 86706; 86803; 87340; 87635; J1644; J1815; U0003; U0005